=== PATIENT | female | born 1940 | race Caucasian/White ===

== ENCOUNTER → 2016-10-23 | Outpatient (CLI) | payer MEDICARE ==
[~2016-10-23] MED LIST: ALEN70TA47 PO; AMLO5TAB2 PO; ASPI-586 PO; ATOR10TA66 PO; CALC-654 PO; DEXL60CA PO; HYDR-3730 PO; LOSA100T28 PO
--- NOTE | 2016-10-23 11:55 | Diagnostic Imaging Report ---
PROCEDURE: US Gallbladder. TECHNIQUE: Multiple real-time grayscale images were obtained over the right upper quadrant in various projections. INDICATION: Abdominal pain. There are no prior studies available for comparison. FINDINGS: There is no evidence for cholelithiasis or acute cholecystitis and the common bile duct is not dilated. The liver is homogeneous and not enlarged. There is no focal mass involving the liver and the biliary tree is not abnormally distended. The right kidney is unremarkable. The pancreas was obscured by bowel gas. IMPRESSION: 1. There is no acute abnormality of the right upper quadrant. 2. If clinical concern regarding an underlying abnormality of the gallbladder persists and further imaging is desired, then nuclear medicine hepatobiliary scan would be recommended for additional study. Dictated by: Dictated on workstation # [id number]
== END ==
LOC: RAD 08:30
PROVIDERS: ATTEND Family Medicine
DX: R10.11 Right upper quadrant pain (principal)
CPT/HCPCS: 76705

== ENCOUNTER → 2016-11-01 | Outpatient (CLI) | payer MEDICARE ==
[~2016-11-01] MED LIST changes: +CATHETER FLUSH 10 ML SYR IV PRN
--- NOTE | 2016-11-01 13:05 | Diagnostic Imaging Report ---
INDICATION: Right upper quadrant pain. COMPARISON: Gallbladder ultrasound 10/23/2016. TECHNIQUE: Scintigraphic images were obtained following the intravenous administration of 5.41 mCi of technetium 99m labeled Choletec. Ejection fraction was calculated following the administration of a fatty meal. Region of interest was drawn around the gallbladder and a time/activity curve was generated. Discussion: Hepatic uptake and excretion are normal. There is normal appearance of activity within the gallbladder at 25 minutes and within the small bowel at 25 minutes. No retention activity seen within the common duct. Following the administration of a fatty meal, the gallbladder ejection fraction was calculated at 60%, normal. IMPRESSION: 1. Normal HIDA scan. 2. Normal gallbladder ejection fraction. Dictated by: Dictated on workstation # [id number]
== END ==
LOC: CARD 09:30
PROVIDERS: ATTEND Family Medicine
DX: R10.11 Right upper quadrant pain (principal)
CPT/HCPCS: 78227

== ENCOUNTER 2016-11-07 12:18 | Outpatient (CLI) | payer MEDICARE ==
[~2016-11-07] VITALS: Ht 165.1 cm; Wt 73.5 kg
[2016-11-07 12:23] VITALS: BP 152/71
[2016-11-07] MEDS ORDERED: ATOR10TA66 PO (12:37)
[2016-11-07] MEDS ORDERED: AMLO5TAB2 PO (12:37)
[2016-11-07] MEDS ORDERED: ALEN70TA47 PO (12:37)
[2016-11-07] MEDS ORDERED: DEXL60CA PO (12:37)
[2016-11-07] MEDS ORDERED: CALC-654 PO (12:37)
[2016-11-07] MEDS ORDERED: LOSA100T28 PO (12:37)
[2016-11-07] MEDS ORDERED: ASPI-586 PO (12:37)
[2016-11-07 13:11] LABS: BASOPHILS % (AUTO) 0 % (0-10); EOSINOPHILS # (AUTO) 0.1 10^3/uL (0.0-0.3); EOSINOPHILS % (AUTO) 1 % (0-10); LYMPHOCYTES # (AUTO) 1.6 X 10^3 (1.0-4.0); LYMPHOCYTES % (AUTO) 23 % (12-44); MEAN CORPUSCULAR HEMOGLOBIN 31 PG (25-34); MEAN CORPUSCULAR HGB CONC 35 G/DL (32-36); MEAN CORPUSCULAR VOLUME 89 FL (80-99); MONOCYTES # (AUTO) 0.5 X 10^3 (0.0-1.0); MONOCYTES % (AUTO) 7 % (0-12); NEUTROPHILS # (AUTO) 4.9 X 10^3 (1.8-7.8); NEUTROPHILS % (AUTO) 69 % (42-75); PLATELET COUNT 305 10^3/uL (130-400); RED BLOOD COUNT 4.88 10^6/uL (4.35-5.85); RED CELL DISTRIBUTION WIDTH 13.5 % (10.0-14.5)
[2016-11-08] MEDS ORDERED: HYDR-3730 PO (15:41)
== END 2016-11-07 12:55 | disposition home or self-care (01) ==
LOC: PREOP 12:18
PROVIDERS: ATTEND Surgery Pediatric Surgery
DX: Z01.812 Encounter for preprocedural laboratory examination (principal); Z11.2 Encounter for screening for other bacterial diseases; K82.8 Other specified diseases of gallbladder; K21.9 Gastro-esophageal reflux disease without esophagitis
CPT/HCPCS: 36415; 85025; 87081

== ENCOUNTER 2016-11-08 11:46 | Day surgery (SDC) | payer MEDICARE ==
[~2016-11-08] VITALS: Ht 165.1 cm; Wt 73.5 kg
[~2016-11-08 11:46] MED LIST changes: -CATHETER FLUSH 10 ML SYR IV PRN; -HYDR-3730 PO
[2016-11-08] MEDS ORDERED: NS (IVPB) 50 ML ONE (11:59)
[2016-11-08] MEDS ORDERED: ceFAZolin 1,000 MG (ANCEF) VIAL ONE (11:59)
[2016-11-08] MEDS: LACTATED RINGERS 1,000 ML IV PRN ×2 (12:00→14:34)
[2016-11-08 12:12] VITALS: BP 148/77
[2016-11-08] MEDS ORDERED: ceFAZolin 1 GM/NS 50 ML IVPB IV ONE ×2 (12:15)
[2016-11-08] MEDS ORDERED: BUP/EPI 0.5% 1:200,000 (SENSORCAINE) 30 ML VIAL ONE (13:17)
[2016-11-08] MEDS ORDERED: proPOfol 200 MG/20 ML (DIPRIVAN) VIAL IV ONE (13:22)
[2016-11-08] MEDS ORDERED: ROCURONIUM 50 MG/5 ML (ZEMURON) VIAL IV ONE (13:22)
[2016-11-08] MEDS ORDERED: LACTATED RINGERS 1,000 ML IV ONE ×2 (13:22→14:31)
[2016-11-08] MEDS ORDERED: fentaNYL INJECTION 100 MCG/2 ML AMP ONE (13:22)
[2016-11-08] MEDS ORDERED: SEVOFLURANE (ULTANE) 15 ML INHAL SOLN ONE ×2 (13:22→15:06)
[2016-11-08] MEDS ORDERED: DEXAMETHASONE PF 10 MG/ML (DECADRON) VIAL ONE (13:22)
[2016-11-08] MEDS ORDERED: ONDANSETRON 4 MG/2 ML (SDV) Z0FRAN ONE (13:22)
[2016-11-08] MEDS ORDERED: LIDOCAINE PF 2% 10 ML (XYLOCAINE) AMP ONE (13:22)
--- NOTE | 2016-11-08 14:02 | Progress Note-Pre Operative ---
Pre-Operative Progress Note H&P Reviewed The H&P was reviewed, patient examined and no changes noted. Date H&P Reviewed: Nov 08, 2016 Time H&P Reviewed: 14:00 Pre-Operative Diagnosis: biliary dyskinesia, GERD JONATHON GILLESPIE MD Nov 08, 2016 2:02 pm
[2016-11-08] MEDS ORDERED: HYDROcodone/APAP 5 MG/325 MG (LORTAB) TAB PO ONE (14:15)
[2016-11-08] MEDS ORDERED: ONDANSETRON 4 MG/2 ML (SDV) Z0FRAN IVP PRN ×2 (14:15→14:30)
[2016-11-08] MEDS ORDERED: ACETAMINOPHEN 325 MG TABLET/CAPLET (TYLENOL) PO PRN (14:15)
[2016-11-08] MEDS ORDERED: morphine INJ 10 MG/ML 1ML (SYR OR VIAL) IVP PRN ×3 (14:15→15:45)
[2016-11-08] MEDS ORDERED: HYDROmorphone (DILAUDID) 2 MG/ML VIAL IVP PRN (14:30)
[2016-11-08] MEDS ORDERED: NEOSTIGMINE (BLOXIVERZ ) 1 MG/1ML 10 ML VIAL ONE (15:06)
[2016-11-08] MEDS ORDERED: GLYCOPYRROLATE 0.2 MG/ML (ROBINUL) 2 ML VIAL ONE ×2 (15:06)
--- NOTE | 2016-11-08 15:38 | Progress Note-Post Operative ---
Post-Operative Progess Note Surgeon (s)/Inspector Timers (s) Surgeon JONATHON GILLESPIE MD Inspector Timers: [employer] [facility] Pre-Operative Diagnosis biliary dyskinesia, GERD Post-Operative Diagnosis same, reflux esophagitis(class B), small HH(<1cm), moderate gastritis. Post-Op Procedure Note Date of Procedure: Nov 08, 2016 Name of Procedure Performed: laparoscopic cholecystectomy. EGD with bx. Description of the Procedure: laparoscopic cholecystectomy. EGD with bx. Findings of the Procedure . Anesthesia Type GET Estimated blood loss (mL): minimal Specimen(s) collected/removed gallbladder, GE jxn, antrum JONATHON GILLESPIE MD Nov 08, 2016 3:38 pm
[2016-11-08] MEDS ORDERED: HYDR-3730 PO (15:41)
--- NOTE | 2016-11-08 15:42 | Discharge Inst-Surgical ---
D/C Lap Instructions-VERNA New, Converted, or Re-Newed RX: RX on Chart Follow Up Appt in 2 weeks Activity as tolerated No driving for 24 hours No driving while on pain medications Incentive Spirometry use every 2 hours while awake Regular Diet Symptoms to Report: Fever over 101 degree F, Nausea/Vomiting Infection Signs and Symptoms to report: Increased redness, Foul odor of wound, Increased drainage Bathing instructions: May shower Operative Area Clean/Dry; Keep incision clean/dry If any problems/questions: Contact your physician or go to Emergency Room JONATHON GILLESPIE MD Nov 08, 2016 3:42 pm
[2016-11-08 16:15] VITALS: BP 167/73
--- NOTE | 2016-11-08 16:25 | OPERATIVE REPORT ---
DATE OF SERVICE: 11/08/2016 ATTENDING PRIMARY CARE PHYSICIAN: Dr. Tony Medrano PREOPERATIVE DIAGNOSIS: Symptomatic biliary dyskinesia. POSTOPERATIVE DIAGNOSIS: Symptomatic biliary dyskinesia. PROCEDURE PERFORMED: Laparoscopic cholecystectomy. SURGEON: Dr. Jonathon Gillespie ANESTHESIA: General endotracheal. ESTIMATED BLOOD LOSS: Minimal. FINDINGS: Mild chronic gallbladder wall inflammation. No stones identified. DISPOSITION: The patient tolerated the procedure well. The patient is a 76-year-old female referred over to us for right upper abdominal quadrant pain. She states that this has been going on for the past several months. She was seen by her primary care physician and she did have symptoms of acid reflux and was started on Dexilant and reports that she did have symptoms of reflux but she continued to have pain in the right upper abdominal quadrant, it did radiate toward the back as well as the right shoulder, usually after eating meals. She does report any nausea or vomiting, however, has had intermittent episodes of diarrhea as well. She has not had any endoscopy up to this point in her life. She did have an ultrasound of the gallbladder on 10/23/16 which did not show any stones. She did have HIDA scan performed which showed abnormal ejection fraction; however, she has severe reproduction of symptoms with replication of right upper abdominal quadrant pain with radiation toward the back as well as a bloating sensation in her abdomen during the test. The patient was brought to the operating room and placed on the table. After adequate IV pain and sedative medications and general endotracheal intubation, the abdomen was prepped and draped in the standard surgical fashion. Then 0.5% Marcaine with epinephrine was used to anesthetize the overlying skin in the left upper abdominal quadrant and a small transverse skin incision made using a 15 blade. An 0 silk suture was applied to the medial aspect of the incision for retraction and the Veress needle inserted with low opening pressure of 0 mmHg and abdomen was insufflated to 15 mmHg pressure. The Veress needle removed and the 5 mm Xcel trocar placed followed by a 5 mm 45 degree angle laparoscope visualizing the peritoneal cavity. A 4 quadrant abdominal x-ray showed there was a mild to moderate gallbladder outlet inflammation. The stomach, liver, omentum and stomach appeared normal. Under direct visualization we then proceed to place a supraumbilical 10 mm port after the skin and peritoneum were anesthetized using 0.5% Marcaine and a transverse skin incision made using 15 blade. A right upper abdominal quadrant 5 mm port was placed in a similar manner. The patient was then placed in reverse Trendelenburg position as well as plane right side up, left side down. The fundus of the gallbladder was then retracted anteriorly and superiorly. The hepatoduodenal ligament was then opened using electrocautery as well as blunt dissection with the hook instrument. The entire critical view of safety was then dissected out including the cystic duct and artery going into the gallbladder as well as the liver behind the proximal portion of the gallbladder. A time-out was then taken and the cystic duct and artery were then clipped proximally and distally and cut with EndoShears. The gallbladder was then dissected off of the liver bed using electrocautery on the hook instrument with visualization, good hemostasis as well a no leaking ducts elicited. The gallbladder was removed through the 10 mm port using an Endo-Catch bag. The fascia and peritoneum to the 15 mm port site was then closed under direct visualization using a Brennen Edmar device and an 0 Vicryl suture. Abdomen was desufflated and remaining ports removed. All skin incisions were closed using 4-0 Monocryl in running subcuticular suture. The wound was then cleaned and covered with Dermabond. The patient tolerated the procedure well. We will start IV and oral pain medication as well as a clear liquid diet. Once she is tolerating clears and has good pain control with oral pain medication and ambulating well, we will discharge her home. Job ID: [id number] DocumentID: [id number] Dictated Date: 11/08/2016 15:13:12 Tax Attorney Date: 11/08/2016 16:25:52 Dictated By: JONATHON GILLESPIE MD
[2016-11-08 16:45] VITALS: BP 167/74
[2016-11-08 16:58] VITALS: BP 167/74
--- NOTE | 2016-11-09 10:24 | OPERATIVE REPORT ---
DATE OF SERVICE: 11/08/2016 ATTENDING PRIMARY CARE PHYSICIAN: Dr. Medrano. PREOPERATIVE DIAGNOSIS: Gastroesophageal reflux disease. POSTOPERATIVE DIAGNOSES: 1. Reflux esophagitis Class B. 2. Small hiatal hernia approximately 1 cm in size. 3. Moderate severity gastritis. PROCEDURE: EGD with biopsy. SURGEON: Dr. Gillespie. ANESTHESIA: General endotracheal. ESTIMATED BLOOD LOSS: Minimal. FINDINGS: Mild reflux esophagitis Class B. No strictures or ulcers. Very small hiatal hernia approximately 1 cm in size. Moderate severity gastritis with no formal ulcers, polyps or any neoplasms. Pylorus and duodenum appeared normal. DISPOSITION: Patient tolerated the procedure well. HISTORY: The patient is a 76-year-old female who has had history of gastroesophageal reflux disease. She reports that this is worse in the past several months. She does have some risk factors including taking in caffeinated beverages as well as previous history of smoking. She has not had any endoscopy up to this point in her life. She was recently started on Dexilant. DESCRIPTION OF PROCEDURE: The patient was in the operating room after a laparoscopic cholecystectomy and under the same general endotracheal anesthesia we proceeded with the EGD portion of the procedure. The mouth piece was applied and the scope was placed in the mouth visualizing the pharynx and hypopharyngeal region. The vocal cords, epiglottis and vallecula identified and appeared to be normal. The endoscope was then gently intubated at the esophageal opening and the esophagus insufflated. The endoscope was then advanced through the first, second and third portions of the esophagus. At the level of the GE junction a reflux esophagitis Class B identified. There were no ulcers or strictures identified in this region. A biopsy was taken with forceps with visualization of good hemostasis. The endoscope was then advanced through the stomach. The endoscope was retroflexed visualizing a small hiatal hernia less than 1 cm in size. There was moderate severity of diffuse gastritis. However there were no ulcers, polyps or any neoplasms identified. A biopsy was taken of the stomach antrum with visualization of good hemostasis. The endoscope was then advanced in the pylorus and the first and second portions of the duodenum which appeared normal. The endoscope was then slowly withdrawn; we took a second look and suctioning residual air with no additional findings. Patient tolerated the procedure well. We will have her continue with Dexilant as well as necessary lifestyle and diet accommodations including smaller more frequent meals, avoiding eating at night as well as head elevation while lying supine. She also needs to avoid caffeinated beverages, spicy, greasy and acidic foods. We will also have her continue with Dexilant for now. However if she has continued symptoms we may add Carafate or change to a different PPI acid leasing sales consultant. Job ID: [id number] DocumentID: [id number] Dictated Date: 11/08/2016 15:29:56 Order Picker/Assembler Date: 11/08/2016 23:06:14 Dictated By: JONATHON GILLESPIE MD MTDPatricia
== END 2016-11-08 16:55 | disposition home or self-care (01) ==
LOC: SDC 11:46
PROVIDERS: ATTEND Surgery Pediatric Surgery
DX: K81.1 Chronic cholecystitis (principal); K21.0 Gastro-esophageal reflux disease with esophagitis; K44.9 Diaphragmatic hernia without obstruction or gangrene; K29.70 Gastritis, unspecified, without bleeding
CPT/HCPCS: 88304; 88305; 88342; 94664

== ENCOUNTER → 2018-01-29 | Outpatient (CLI) | payer MEDICARE ==
[~2018-01-29] MED LIST changes: +HYDR-3730 PO
--- NOTE | 2018-01-29 14:04 | Diagnostic Imaging Report ---
Left knee at 1143. Indication: Knee pain Four views were obtained. There are no prior studies available for comparison. By history, the patient has had a prior fracture of the patella. The lateral view does show that there is a fairly well circumscribed linear area of low density extending to the posterior half of the mid body of the patella. This could well be a sequela of prior trauma. It would be less likely that this is related to an acute injury. If previous exams are available they would be helpful for comparison. If there are no prior studies and clinical concern regarding an acute injury to the patella persists, then MRI would be recommended for additional study. No other fracture or acute bony abnormality is noted. 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 There is no sign of a joint effusion or lipohemarthrosis. Impression: 1. The linear defect in the posterior half of the mid body of the patella is more likely a sequela of prior trauma than due to an acute abnormality. Recommendations as above. 2. There is no acute bony abnormality identified otherwise. Dictated by: Dictated on workstation # [id number]
== END ==
LOC: RAD 10:53
PROVIDERS: ATTEND Family Medicine
DX: M22.8X2 Other disorders of patella, left knee (principal)
CPT/HCPCS: 73564

== ENCOUNTER → 2021-05-30 | Outpatient (CLI) | payer MEDICARE ==
[~2021-05-30] MED LIST changes: -ALEN70TA47 PO; +ALEN70TA80 PO; +AMLO-250 PO; -AMLO5TAB2 PO; -LOSA100T28 PO; +LOSA100T57 PO
--- NOTE | 2021-05-30 09:27 | Diagnostic Imaging Report ---
INDICATION: M81.0,RENAL INSUFFICIENCY TECHNIQUE: Multiple real-time grayscale sonographic images were obtained of the kidneys. CORRELATION: None FINDINGS: RIGHT KIDNEY: 10.1 x 4.2 x 4.0 cm. There is normal echotexture of the right renal parenchyma. No definitive calcification or hydronephrosis. LEFT KIDNEY: 10.8 x 4.1 x 4.0 cm. There is normal echotexture of the left renal parenchyma. No definitive calcification or hydronephrosis. URINARY BLADDER: The partially distended bladder has an unremarkable appearance. There is visualization of the right ureteral jet with nonvisualization of the left ureteral jet. IMPRESSION: 1. Unremarkable renal sonogram. Dictated by: Dictated on workstation # [id number]
--- NOTE | 2021-05-30 09:40 | Diagnostic Imaging Report ---
INDICATION: Postmenopausal. COMPARISON: 07/28/2015 FINDINGS: The bone mineral density of the spine and hips and femoral necks was measured. The total T score for the spine is -3.7. On the prior exam, the T score is -3.8. This value does indicate severe osteoporosis. The total T score for the left hip is -0.9 and for the right hip -1.2. On the prior exam the respective T scores were -0.8 and -1.1. The T score for each femoral neck is -1.9. On the prior exam, the T score for the left femoral neck was -1.7 and for the right -2.1. AP Spine L1-L4: [BMD (g/cm2): 0.751] [T-Score: -3.7] [Z-Score: -2.3] [BMD Previous: 0.748] [BMD % Change: 0.4] LT Hip Neck: [BMD (g/cm2): 0.768] [T-Score: -1.9] [Z-Score: 0.1] LT Hip Total: [BMD (g/cm2):0.895] [T-Score:-0.9] [Z-Score: 1.0] [BMD Previous: 0.904] [BMD % Change: -1.0] RT Hip Neck: [BMD (g/cm2):0.775] [T-Score:-1.9] [Z-Score:0.1] RT Hip Total: [BMD (g/cm2):0.856] [T-score:-1.2] [Z-Score:0.7] [BMD Previous:0.868] [BMD % Change:-1.4] *Indicates significant change from prior examination based on 95% confidence level. World Health Organization criteria for BMD interpretation classify patients as Normal (T-score at or above -1.0), Osteopenic (T-score between -1.0 and -2.5) or Osteoporotic (T-score at or below -2.5). LIMITATIONS AND MODIFICATION: None. FRACTURE RISK (FRAX SCORE): The ten year probability of (%): Major Osteoporotic Fracture: [21.6] Hip Fracture: [6.0] IMPRESSION: 1. When compared to the previous study, there does not appear to be any significant change. There is still severe osteoporosis of the spine. There is also osteopenia of the femoral necks and the right hip. The T score for the left hip remains at the low end of normal. 2. 3. See below National Osteoporosis Foundation guidelines on when to potentially initiate pharmacologic therapy. Based on the National Osteoporosis Foundation Guidelines, pharmacologic treatment should be initiated in any of the following, unless clinical conditions suggest otherwise: * Any patient with prior fragility fracture of the hip or vertebrae. A spine fracture indicates 5X risk for subsequent spine fracture and 2X risk for subsequent hip fracture. * Osteoporosis (T-score <-2.5). * Postmenopausal women and men age 50 and older with low bone mass/osteopenia (T-score between -1.0 and -2.5) by DXA and 10-year major osteoporotic fracture greater than 20% or a 10-year probability of hip fracture greater than 3%. These fracture risks are supplied above in the FRAX score, if applicable. * Clinician judgement and/or patient preferences may indicate treatment for people with 10-year fracture probabilities above or below these levels. Dictated by: Dictated on workstation # [id number]
== END ==
LOC: RAD 08:30
PROVIDERS: ATTEND Family Medicine
DX: M81.0 Age-related osteoporosis without current pathological fracture (principal); N28.9 Disorder of kidney and ureter, unspecified; Z78.0 Asymptomatic menopausal state
CPT/HCPCS: 76770; 77080